=== PATIENT | female | born 1985 | race Caucasian/White ===

== ENCOUNTER 2018-06-12 23:43 | Emergency (ER) | payer OTHER ==
[~2018-06-12] VITALS: Ht 157.5 cm; Wt 74.8 kg
[~2018-06-12 23:43] MED LIST: ADDERALL 10 MG10 MG PO; ADDERALL 30 MG30 MG PO; AMOXICILLIN 50500 M1 PO; APAP500 PO; AUGMENTIN 500-1 EACH PO; AZITHROMYCIN 2250 MG PO; B COMPLEX1 EAC1 PO; CIPRO250 M2 PO; CLEOCIN HCL150 MG PO; CREON DR 3,0001 EACH PO; DIFLUCAN150 M1 PO; DOXYCYCLINE 10100 MG IV; FLEXERIL PO; HYDROCODONE-AP1 EAC6 PO; IBUPROFEN 800800 M1 PO; IBUPROFEN 800800 MG PO; IODINE1 GM PO; MILK OF MA2400 MG/10 PO; NORCO 5-325 TA1 EACH; NORCO 5-325 TA1 EACH PO; PERCOCET 5-3251 EACH PO; PERCOCET 7.5-31 EACH PO; PERCOCET PO; PREDNISONE 10 M10 MG PO; TIZANIDINE HCL4 MG PO; UNICOMPLEX M TA1 TA1 PO; VITAMIN D1000 UNI1 PO; ZOFRAN4 MG PO
[2018-06-13] MEDS ORDERED: OXYCODONE HCL10 MG
[2018-06-13] MEDS ORDERED: NEURONTIN 300300 M1 (00:01)
[2018-06-13] MEDS ORDERED: FLEXERIL PO (01:51)
[2018-06-13 02:14] VITALS: BP 124/88
== END 2018-06-13 02:14 | disposition home or self-care (01) ==
LOC: M.ERS 23:43
DX: S06.0X0A Concussion without loss of consciousness, initial encounter (principal); N80.9 Endometriosis, unspecified; I10 Essential (primary) hypertension; Z88.2 Allergy status to sulfonamides; Z88.8 Allergy status to other drugs, medicaments and biological substances; W18.39XA Other fall on same level, initial encounter; Y93.89 Activity, other specified; Y92.89 Other specified places as the place of occurrence of the external cause; Y99.8 Other external cause status

== ENCOUNTER 2019-07-01 07:37 | Emergency (ER) | payer OTHER, MEDICAID ==
[~2019-07-01] VITALS: Ht 165.1 cm; Wt 90.7 kg
[~2019-07-01 07:37] MED LIST changes: +NEURONTIN 300300 M1; +OXYCODONE HCL10 MG
[2019-07-01 08:23] LABS: URINE BILIRUBIN NEGATIVE (Negative); URINE BLOOD NEGATIVE (Negative); URINE CLARITY CLEAR; URINE COLOR YELLOW; URINE GLUCOSE-RANDOM NEGATIVE (Negative); URINE KETONES NEGATIVE (Negative); URINE LEUKOCYTES-REFLEX NEGATIVE (Negative); URINE NITRITE-REFLEX NEGATIVE (Negative); URINE PROTEIN TRACE (Negative); URINE SPECIFIC GRAVITY >= 1.030 (1.005-1.030); URINE UROBILINOGEN 0.2 E.U./dl (0.2-1.0)
[2019-07-01] MEDS ORDERED: BUTALB-APAP-CA1 EACH PO (10:55)
[2019-07-01] MEDS ORDERED: XANAX 0.25 MG0.25 MG PO (10:55)
[2019-07-01 11:26] VITALS: BP 125/93
== END 2019-07-01 11:27 | disposition home or self-care (01) ==
LOC: M.ERS 07:37
PROVIDERS: Personal Emergency Response Attendant
DX: S06.0X0A Concussion without loss of consciousness, initial encounter (principal); S20.229A Contusion of unspecified back wall of thorax, initial encounter; S00.411A Abrasion of right ear, initial encounter; H92.11 Otorrhea, right ear; N80.9 Endometriosis, unspecified; E28.2 Polycystic ovarian syndrome; I10 Essential (primary) hypertension; Z88.8 Allergy status to other drugs, medicaments and biological substances; Z88.2 Allergy status to sulfonamides; Z90.49 Acquired absence of other specified parts of digestive tract; Y04.2XXA Assault by strike against or bumped into by another person, initial encounter; Y92.89 Other specified places as the place of occurrence of the external cause; Y93.89 Activity, other specified; Y99.8 Other external cause status

== ENCOUNTER 2019-08-08 01:58 | Emergency (ER) | payer OTHER, MEDICAID ==
[~2019-08-08] VITALS: Ht 157.5 cm; Wt 81.7 kg
[~2019-08-08 01:58] MED LIST changes: +BUTALB-APAP-CA1 EACH PO; +XANAX 0.25 MG0.25 MG PO
[2019-08-08 02:20] LABS: URINE BILIRUBIN NEGATIVE (Negative); URINE BLOOD NEGATIVE (Negative); URINE CLARITY CLEAR; URINE COLOR DARK YELLOW; URINE GLUCOSE-RANDOM NEGATIVE (Negative); URINE KETONES NEGATIVE (Negative); URINE LEUKOCYTES-REFLEX TRACE (Negative); URINE NITRITE-REFLEX NEGATIVE (Negative); URINE PROTEIN NEGATIVE (Negative); URINE UROBILINOGEN 0.2 E.U./dl (0.2-1.0)
[2019-08-08 02:28] LABS: AMP/METHAMP POSITIVE (Negative); BARBITURATES POSITIVE (Negative); BENZODIAZEPINES Negative (Negative); COCAINE Negative (Negative); METHADONE Negative (Negative); OPIATES POSITIVE (Negative); PCP Negative (Negative); THC Negative (Negative)
[2019-08-08 02:31] LABS: BACTERIA-REFLEX >30 Many /HPF (None Seen); CASTS None Seen /LPF (None Seen); CRYSTALS None Seen /LPF (None Seen); MUCUS 4-6 Moderate strn/LPF (None Seen); SQUAMOUS 0-3 Few /LPF (0-3); URINE RBC 3-10 Few /HPF (0-2); URINE WBC-REFLEX 0-5 Rare /HPF (0-5)
[2019-08-08 06:31] VITALS: BP 124/75
== END 2019-08-08 06:34 | disposition home or self-care (01) ==
LOC: M.ERS 01:58
PROVIDERS: Emergency Medicine
DX: S60.221A Contusion of right hand, initial encounter (principal); S00.81XA Abrasion of other part of head, initial encounter; E28.2 Polycystic ovarian syndrome; I10 Essential (primary) hypertension; Z88.7 Allergy status to serum and vaccine; Z88.2 Allergy status to sulfonamides; Y04.0XXA Assault by unarmed brawl or fight, initial encounter; Y93.89 Activity, other specified; Y92.89 Other specified places as the place of occurrence of the external cause; Y99.8 Other external cause status

== ENCOUNTER 2020-04-12 09:28 | Emergency (ER) | payer OTHER, MEDICAID ==
[~2020-04-12] VITALS: Ht 157.5 cm; Wt 83.9 kg
[2020-04-12] MEDS ORDERED: CYMBALTA20 MG PO (09:45)
[2020-04-12] MEDS ORDERED: CELEBREX50 MG PO (09:45)
[2020-04-12] MEDS ORDERED: MORPHINE SULFAT15 MG PO (09:46)
[2020-04-12 09:48] LABS: URINE BILIRUBIN NEGATIVE (Negative); URINE BLOOD 1+ (Negative); URINE CLARITY SL CLOUDY; URINE COLOR YELLOW; URINE GLUCOSE-RANDOM NEGATIVE (Negative); URINE KETONES NEGATIVE (Negative); URINE LEUKOCYTES-REFLEX NEGATIVE (Negative); URINE NITRITE-REFLEX NEGATIVE (Negative); URINE PROTEIN NEGATIVE (Negative); URINE SPECIFIC GRAVITY 1.025 (1.005-1.030); URINE UROBILINOGEN 0.2 E.U./dl (0.2-1.0)
[2020-04-12 09:51] LABS: ABSOLUTE BASOPHILS 0.1 thou/uL (0.0-0.2); ABSOLUTE EOSINOPHILS 0.1 thou/uL (0.0-0.7); ABSOLUTE LYMPHOCYTES 2.4 thou/uL (0.8-5.3); ABSOLUTE MONOCYTES 0.7 thou/uL (0.0-1.2); ABSOLUTE NEUTROPHILS 6.1 thou/uL (1.6-8.1); BASOPHILS 0.9 %; EOSINOPHILS 0.7 %; HEMATOCRIT 42.7 % (37.0-47.0); HEMOGLOBIN 14.9 gm/dL (12.0-15.0); LYMPHOCYTES 25.2 %; MCV 91.4 fL (80.0-100.0); MONOCYTES 7.9 %; MPV 7.4 fl. (7.2-11.1); NUCLEATED RBCS 0 /100WBC; PLATELET COUNT* 380 thou/uL (150-400); POLYS 65.3 %; RBC 4.67 mil/uL (4.20-5.00); RDW-CV 14.4 % (10.5-14.5); WBC 9.3 thou/uL (4.0-11.0)
[2020-04-12 09:57] LABS: CREATININE 1.1 mg/dL (0.6-1.3); POTASSIUM 3.6 mmol/L (3.5-5.1)
[2020-04-12 10:02] LABS: ALBUMIN 3.4 g/dL (3.4-5.0); TOTAL BILIRUBIN 0.3 mg/dL (<0.1-1.0)
[2020-04-12 10:16] LABS: BACTERIA-REFLEX 1-9 Few /HPF (None Seen); CASTS None Seen /LPF (None Seen); CRYSTALS None Seen /LPF (None Seen); MUCUS None Seen strn/LPF (None Seen); SQUAMOUS >10 Many /LPF (0-3); URINE RBC 3-10 Few /HPF (0-2); URINE WBC-REFLEX 0-5 Rare /HPF (0-5)
[2020-04-12 10:51] VITALS: BP 136/100
--- NOTE | 2020-04-13 08:57 | EKG ---
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: [facility] : 1985 Requested By: Zhen Vargas Order Number: [id number] MD: David Duarte Measurements Intervals [place] Rate: 144 P: 15 [place]: 138 QRS: 46 QRSD: 75 T: 236 QT: 355 QTc: 550 Interpretive Statements Sinus tachycardia Anterior infarct, old Borderline repolarization abnormality Prolonged QT interval Baseline wander in lead(s) II,III,aVR,aVL,aVF,V1,V4,V6 Compared to ECG 09/12/2017 15:59:43 Myocardial infarct finding now present Prolonged QT interval now present Electronically Signed On 04-13-2020 8:57:15 CDT by David Duarte [email or web address] <ELECTRONICALLY SIGNED> By: David Duarte MD, [facility] 04/13/20 0857 2 2 David Duarte MD, [facility] /EPI
== END 2020-04-12 10:53 | disposition home or self-care (01) ==
LOC: M.ERS 09:28
PROVIDERS: Family Medicine
DX: R10.31 Right lower quadrant pain (principal); R10.32 Left lower quadrant pain; R11.0 Nausea; I10 Essential (primary) hypertension; R31.9 Hematuria, unspecified; Z88.2 Allergy status to sulfonamides; Z88.1 Allergy status to other antibiotic agents; Z88.7 Allergy status to serum and vaccine; Z79.899 Other long term (current) drug therapy

== ENCOUNTER 2020-04-18 11:36 | Emergency (ER) | payer OTHER, MEDICAID ==
[~2020-04-18] VITALS: Ht 157.5 cm; Wt 81.7 kg
[~2020-04-18 11:36] MED LIST changes: +CELEBREX50 MG PO; +CYMBALTA20 MG PO; +MORPHINE SULFAT15 MG PO
[2020-04-18 12:39] LABS: ABSOLUTE BASOPHILS 0.1 thou/uL (0.0-0.2); ABSOLUTE LYMPHOCYTES 2.3 thou/uL (0.8-5.3); ABSOLUTE MONOCYTES 0.6 thou/uL (0.0-1.2); ABSOLUTE NEUTROPHILS 4.9 thou/uL (1.6-8.1); BASOPHILS 0.6 %; EOSINOPHILS 0.6 %; HEMATOCRIT 43.3 % (37.0-47.0); HEMOGLOBIN 15.3 gm/dL (12.0-15.0); LYMPHOCYTES 29.2 %; MCH 31.7 pg (26.0-34.0); MCHC 35.4 g/dL (28.0-37.0); MCV 89.8 fL (80.0-100.0); MONOCYTES 7.3 %; MPV 7.8 fl. (7.2-11.1); NUCLEATED RBCS 0 /100WBC; PLATELET COUNT* 430 thou/uL (150-400); POLYS 62.3 %; RBC 4.82 mil/uL (4.20-5.00); WBC 7.9 thou/uL (4.0-11.0)
[2020-04-18 12:43] LABS: CALCIUM 9.3 mg/dL (8.5-10.1); CREATININE 1.1 mg/dL (0.6-1.3)
[2020-04-18 12:43] LABS: URINE BILIRUBIN NEGATIVE (Negative); URINE BLOOD NEGATIVE (Negative); URINE CLARITY CLEAR; URINE COLOR YELLOW; URINE GLUCOSE-RANDOM NEGATIVE (Negative); URINE KETONES NEGATIVE (Negative); URINE LEUKOCYTES-REFLEX NEGATIVE (Negative); URINE NITRITE-REFLEX NEGATIVE (Negative); URINE PROTEIN NEGATIVE (Negative); URINE UROBILINOGEN 0.2 E.U./dl (0.2-1.0)
[2020-04-18 12:48] LABS: ALBUMIN 3.8 g/dL (3.4-5.0); TOTAL BILIRUBIN 0.4 mg/dL (<0.1-1.0); TOTAL PROTEIN 8.2 g/dL (6.4-8.2)
[2020-04-18 12:48] LABS: AMP/METHAMP POSITIVE (Negative); BARBITURATES Negative (Negative); BENZODIAZEPINES Negative (Negative); COCAINE Negative (Negative); METHADONE Negative (Negative); OPIATES Negative (Negative); PCP Negative (Negative); THC Negative (Negative)
[2020-04-18 12:49] LABS: ACETAMINOPHEN < 2 ug/mL (10-30); ALCOHOL < 10 mg/dL (<10); SALICYLATE 2.8 mg/dL (2.8-20.0)
--- NOTE | 2020-04-18 13:44 | EKG ---
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1985 Requested By: Jose Antonio Noe Order Number: [id number] MD: J Carlos Schneider Measurements Intervals [place] Rate: 147 P: 67 SC: 116 QRS: 9 QRSD: 75 T: 256 QT: 287 QTc: 449 Interpretive Statements Sinus tachycardia Probable anteroseptal infarct, old Nonspecific T abnormalities, lateral leads Compared to ECG 04/12/2020 09:53:30 Prolonged QT interval no longer present Myocardial infarct finding still present Electronically Signed On 04-18-2020 13:43:35 CDT by J Carlos Schneider [email or web address] <ELECTRONICALLY SIGNED> By: J Carlos Schneider MD, FACC 04/18/20 1343 1159 1159 J Carlos Schneider MD, [facility] /EPI
[2020-04-18 16:10] VITALS: BP 132/82
== END 2020-04-18 16:10 | disposition home or self-care (01) ==
LOC: M.ERS 11:36
PROVIDERS: Emergency Medicine Emergency Medical Services
DX: M25.511 Pain in right shoulder (principal); R41.0 Disorientation, unspecified; J02.9 Acute pharyngitis, unspecified; R00.2 Palpitations; I10 Essential (primary) hypertension; Z88.2 Allergy status to sulfonamides; Z88.1 Allergy status to other antibiotic agents; Z88.7 Allergy status to serum and vaccine; Z79.899 Other long term (current) drug therapy; Y04.8XXA Assault by other bodily force, initial encounter; Y93.89 Activity, other specified; Y92.89 Other specified places as the place of occurrence of the external cause; Y99.8 Other external cause status

== ENCOUNTER 2020-05-18 00:57 | Emergency (ER) | payer OTHER, MEDICAID ==
[~2020-05-18] VITALS: Ht 157.5 cm; Wt 86.2 kg
[2020-05-18 01:28] LABS: ABSOLUTE EOSINOPHILS 0.2 thou/uL (0.0-0.7); ABSOLUTE LYMPHOCYTES 2.9 thou/uL (0.8-5.3); ABSOLUTE MONOCYTES 0.6 thou/uL (0.0-1.2); ABSOLUTE NEUTROPHILS 3.1 thou/uL (1.6-8.1); BASOPHILS 0.7 %; EOSINOPHILS 2.2 %; HEMATOCRIT 41.1 % (37.0-47.0); HEMOGLOBIN 14.3 gm/dL (12.0-15.0); LYMPHOCYTES 42.4 %; MCH 31.2 pg (26.0-34.0); MCHC 34.7 g/dL (28.0-37.0); MCV 89.8 fL (80.0-100.0); MPV 7.3 fl. (7.2-11.1); NUCLEATED RBCS 0 /100WBC; PLATELET COUNT* 398 thou/uL (150-400); POLYS 45.7 %; RBC 4.57 mil/uL (4.20-5.00); RDW-CV 13.6 % (10.5-14.5); WBC 6.8 thou/uL (4.0-11.0)
[2020-05-18 01:35] LABS: CREATININE 1.1 mg/dL (0.6-1.3); POTASSIUM 3.3 mmol/L (3.5-5.1)
[2020-05-18 01:37] LABS: URINE BILIRUBIN NEGATIVE (Negative); URINE BLOOD NEGATIVE (Negative); URINE CLARITY CLEAR; URINE COLOR YELLOW; URINE GLUCOSE-RANDOM NEGATIVE (Negative); URINE KETONES NEGATIVE (Negative); URINE LEUKOCYTES-REFLEX NEGATIVE (Negative); URINE NITRITE-REFLEX NEGATIVE (Negative); URINE PROTEIN NEGATIVE (Negative); URINE UROBILINOGEN 0.2 E.U./dl (0.2-1.0)
[2020-05-18 01:43] LABS: AMP/METHAMP Negative (Negative); BARBITURATES Negative (Negative); BENZODIAZEPINES Negative (Negative); COCAINE Negative (Negative); METHADONE Negative (Negative); OPIATES POSITIVE (Negative); PCP Negative (Negative); THC Negative (Negative)
[2020-05-18 01:45] LABS: ALBUMIN 3.5 g/dL (3.4-5.0); CALCIUM 8.4 mg/dL (8.5-10.1); MAGNESIUM 1.7 mg/dL (1.8-2.4); TOTAL BILIRUBIN 0.2 mg/dL (<0.1-1.0); TOTAL PROTEIN 7.3 g/dL (6.4-8.2)
[2020-05-18 01:49] LABS: PROTIME 10.5 Seconds (9.20-11.50)
[2020-05-18 03:16] VITALS: BP 122/68
--- NOTE | 2020-05-18 08:49 | EKG ---
[place] [address] ELECTROCARDIOGRAM REPORT Name: YANELY ACUNA [facility] [id number] Admission: 05/18/20 Attend Phys: Discharge: 05/18/20 Date of : 81 Date of Service: 05/18/20 0102 Report #: [id number] THIS REPORT FOR: //name// 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[place] : 1985 Requested By: Susana Hui Order Number: [id number] MD: J Carlos Schneider Measurements Intervals [place] Rate: 136 P: 40 [place]: 127 QRS: 13 QRSD: 77 T: 15 QT: 314 QTc: 473 Interpretive Statements Sinus tachycardia Probable anteroseptal infarct, old Compared to ECG 04/18/2020 11:59:02 T-wave abnormality no longer present Myocardial infarct finding still present Electronically Signed On 05-18-2020 8:49:43 CDT by J Carlos Schneider [email or web address] <ELECTRONICALLY SIGNED> By: J Carlos Schneider MD, [facility] 05/18/20 0849 1 0102 J Carlos Schneider MD, [facility] /EPI
== END 2020-05-18 03:16 | disposition home or self-care (01) ==
LOC: M.ERS 00:57
PROVIDERS: Emergency Medicine
DX: F41.9 Anxiety disorder, unspecified (principal); R00.0 Tachycardia, unspecified; I10 Essential (primary) hypertension; Z88.2 Allergy status to sulfonamides; Z88.1 Allergy status to other antibiotic agents; Z88.8 Allergy status to other drugs, medicaments and biological substances; Z79.899 Other long term (current) drug therapy

== ENCOUNTER 2020-06-17 20:55 | Emergency (ER) | payer OTHER, MEDICAID ==
[~2020-06-17] VITALS: Ht 157.5 cm; Wt 93.0 kg
[2020-06-17 21:29] LABS: ABSOLUTE EOSINOPHILS 0.1 thou/uL (0.0-0.7); ABSOLUTE LYMPHOCYTES 2.4 thou/uL (0.8-5.3); ABSOLUTE MONOCYTES 0.8 thou/uL (0.0-1.2); ABSOLUTE NEUTROPHILS 4.5 thou/uL (1.6-8.1); BASOPHILS 0.3 %; HEMATOCRIT 43.3 % (37.0-47.0); HEMOGLOBIN 15.5 gm/dL (12.0-15.0); LYMPHOCYTES 30.6 %; MCH 31.2 pg (26.0-34.0); MCHC 35.7 g/dL (28.0-37.0); MCV 87.4 fL (80.0-100.0); MPV 7.6 fl. (7.2-11.1); NUCLEATED RBCS 0 /100WBC; PLATELET COUNT* 428 thou/uL (150-400); POLYS 58.1 %; RBC 4.95 mil/uL (4.20-5.00); RDW-CV 13.2 % (10.5-14.5); WBC 7.8 thou/uL (4.0-11.0)
[2020-06-17 21:33] LABS: CALCIUM 8.5 mg/dL (8.5-10.1); POTASSIUM 3.5 mmol/L (3.5-5.1)
[2020-06-17 21:37] LABS: ALBUMIN 3.6 g/dL (3.4-5.0); APTT 28.2 Seconds (25.0-31.3); PROTIME 10.5 Seconds (9.20-11.50); TOTAL BILIRUBIN 0.2 mg/dL (<0.1-1.0); TOTAL PROTEIN 7.9 g/dL (6.4-8.2)
[2020-06-17 22:36] LABS: URINE BILIRUBIN NEGATIVE (Negative); URINE BLOOD NEGATIVE (Negative); URINE CLARITY CLEAR; URINE COLOR YELLOW; URINE GLUCOSE-RANDOM NEGATIVE (Negative); URINE KETONES NEGATIVE (Negative); URINE LEUKOCYTES-REFLEX NEGATIVE (Negative); URINE NITRITE-REFLEX NEGATIVE (Negative); URINE PROTEIN NEGATIVE (Negative); URINE UROBILINOGEN 0.2 E.U./dl (0.2-1.0)
[2020-06-17] MEDS ORDERED: TOPROL XL25 MG PO (23:25)
[2020-06-17 23:33] VITALS: BP 125/70
[2020-06-18] MEDS ORDERED: XARELTO15 MG PO (10:17)
--- NOTE | 2020-06-18 14:00 | EKG ---
[place] [address] ELECTROCARDIOGRAM REPORT Name: KALPANAYANELY Room: [facility]#: [id number] Admission: 06/17/20 Attend Phys: Discharge: 06/17/20 Date of : 81 Date of Service: 06/17/202101 Report #: [id number] THIS REPORT FOR: //name// 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 : 1985 Requested By: Gladis Hook Order Number: [id number] MD: David Duarte Measurements Intervals [place] Rate: 122 P: 46 [place]: 138 QRS: 7 QRSD: 69 T: QT: 326 QTc: 465 Interpretive Statements Sinus tachycardia Borderline T abnormalities, lateral leads Baseline wander in lead(s) II,III,aVF Compared to ECG 05/18/2020 01:02:03 T-wave abnormality now present Myocardial infarct finding no longer present Electronically Signed On 06-18-2020 14:00:28 CDT by David Duarte [email or web address] <ELECTRONICALLY SIGNED> By: David Duarte MD, FACC 06/18/201399 01 01 David Duarte MD, FAC /EPI
== END 2020-06-17 23:34 | disposition home or self-care (01) ==
LOC: M.ERS 20:55
PROVIDERS: Personal Emergency Response Attendant
DX: R00.2 Palpitations (principal); I10 Essential (primary) hypertension; E28.2 Polycystic ovarian syndrome; N80.9 Endometriosis, unspecified; Z90.49 Acquired absence of other specified parts of digestive tract; Z90.721 Acquired absence of ovaries, unilateral; Z88.1 Allergy status to other antibiotic agents; Z88.2 Allergy status to sulfonamides; Z88.7 Allergy status to serum and vaccine

== ENCOUNTER 2020-06-18 03:30 | Emergency (ER) | payer OTHER, MEDICAID ==
[~2020-06-18] VITALS: Ht 167.6 cm; Wt 90.7 kg
[~2020-06-18 03:30] MED LIST changes: +TOPROL XL25 MG PO
[2020-06-18 04:38] LABS: URINE BILIRUBIN NEGATIVE (Negative); URINE BLOOD NEGATIVE (Negative); URINE CLARITY CLEAR; URINE COLOR YELLOW; URINE GLUCOSE-RANDOM NEGATIVE (Negative); URINE KETONES NEGATIVE (Negative); URINE LEUKOCYTES-REFLEX NEGATIVE (Negative); URINE NITRITE-REFLEX NEGATIVE (Negative); URINE PROTEIN NEGATIVE (Negative); URINE UROBILINOGEN 0.2 E.U./dl (0.2-1.0)
[2020-06-18 04:42] LABS: AMP/METHAMP Negative (Negative); BARBITURATES Negative (Negative); BENZODIAZEPINES Negative (Negative); COCAINE Negative (Negative); METHADONE Negative (Negative); OPIATES POSITIVE (Negative); PCP Negative (Negative); THC Negative (Negative)
[2020-06-18 05:28] LABS: ABSOLUTE LYMPHOCYTES 1.8 thou/uL (0.8-5.3); ABSOLUTE MONOCYTES 0.4 thou/uL (0.0-1.2); ABSOLUTE NEUTROPHILS 4.7 thou/uL (1.6-8.1); BASOPHILS 0.5 %; EOSINOPHILS 0.5 %; HEMATOCRIT 42.6 % (37.0-47.0); HEMOGLOBIN 14.8 gm/dL (12.0-15.0); LYMPHOCYTES 25.2 %; MCH 30.2 pg (26.0-34.0); MCHC 34.7 g/dL (28.0-37.0); MCV 87.2 fL (80.0-100.0); MONOCYTES 6.1 %; MPV 7.7 fl. (7.2-11.1); NUCLEATED RBCS 0 /100WBC; PLATELET COUNT* 437 thou/uL (150-400); POLYS 67.7 %; RBC 4.88 mil/uL (4.20-5.00); RDW-CV 13.3 % (10.5-14.5)
[2020-06-18 05:51] LABS: CALCIUM 9.3 mg/dL (8.5-10.1); CREATININE 1.1 mg/dL (0.6-1.3)
[2020-06-18 05:54] LABS: POTASSIUM 4.7 mmol/L (3.5-5.1)
[2020-06-18 05:57] LABS: ALBUMIN 3.6 g/dL (3.4-5.0); TOTAL BILIRUBIN 0.2 mg/dL (<0.1-1.0); TOTAL PROTEIN 7.8 g/dL (6.4-8.2)
[2020-06-18] MEDS ORDERED: XARELTO15 MG PO (10:17)
[2020-06-18 10:39] VITALS: BP 114/70
--- NOTE | 2020-06-18 14:01 | EKG ---
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1985 Requested By: Gladis Hook Order Number: [id number] MD: David Duarte Measurements Intervals [place] Rate: 98 P: 1 [place]: 141 QRS: 8 QRSD: 83 T: 37 QT: 367 QTc: 469 Interpretive Statements Sinus rhythm Borderline T wave abnormalities Compared to ECG 06/17/2020 21:02:51 Sinus tachycardia no longer present T-wave abnormality still present Electronically Signed On 06-18-2020 14:01:36 CDT by David Duarte [email or web address] <ELECTRONICALLY SIGNED> By: David Duarte MD, FACC 06/18/20 1401 0334 0334 David Duarte MD, [facility] /EPI
== END 2020-06-18 10:41 | disposition home or self-care (01) ==
LOC: M.ERS 03:30
PROVIDERS: Personal Emergency Response Attendant
DX: F41.9 Anxiety disorder, unspecified (principal); Z20.828 Contact with and (suspected) exposure to other viral communicable diseases; I10 Essential (primary) hypertension; N80.9 Endometriosis, unspecified; Z79.899 Other long term (current) drug therapy; Z88.7 Allergy status to serum and vaccine; Z88.2 Allergy status to sulfonamides; Z88.1 Allergy status to other antibiotic agents

== ENCOUNTER 2020-06-27 01:20 | Emergency (ER) | payer OTHER, MEDICAID ==
[~2020-06-27] VITALS: Ht 157.5 cm; Wt 90.7 kg
[~2020-06-27 01:20] MED LIST changes: +XARELTO15 MG PO
[2020-06-27] MEDS ORDERED: CLONAZEPAM 0.50.5 M1 PO (01:33)
[2020-06-27] MEDS ORDERED: MORPHINE SULFAT30 M4 PO (01:34)
[2020-06-27 01:41] LABS: ABSOLUTE LYMPHOCYTES 2.4 thou/uL (0.8-5.3)
[2020-06-27 01:43] LABS: ABSOLUTE EOSINOPHILS 0.1 thou/uL (0.0-0.7); ABSOLUTE MONOCYTES 0.5 thou/uL (0.0-1.2); ABSOLUTE NEUTROPHILS 1.2 thou/uL (1.6-8.1); BASOPHILS 0.5 %; EOSINOPHILS 2.5 %; HEMOGLOBIN 13.6 gm/dL (12.0-15.0); LYMPHOCYTES 56.3 %; MCH 29.8 pg (26.0-34.0); MCHC 33.9 g/dL (28.0-37.0); MONOCYTES 12.4 %; MPV 7.5 fl. (7.2-11.1); NUCLEATED RBCS 0 /100WBC; PLATELET COUNT* 300 thou/uL (150-400); POLYS 28.3 %; RBC 4.54 mil/uL (4.20-5.00); RDW-CV 13.5 % (10.5-14.5); WBC 4.2 thou/uL (4.0-11.0)
[2020-06-27 02:04] LABS: INR 1.1; PROTIME 11.4 Seconds (9.20-11.50)
[2020-06-27 02:10] LABS: POTASSIUM 3.2 mmol/L (3.5-5.1)
[2020-06-27 02:17] LABS: CK-MB MASS 1.1 ng/mL (<0.5-3.6); MAGNESIUM 1.7 mg/dL (1.8-2.4); TOTAL BILIRUBIN 0.2 mg/dL (<0.1-1.0); TOTAL PROTEIN 6.7 g/dL (6.4-8.2)
[2020-06-27 04:55] VITALS: BP 117/80
--- NOTE | 2020-06-27 10:55 | EKG ---
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1985 Requested By: Zhen Vargas Order Number: [id number] MD: J Carlos Schneider Measurements Intervals [place] Rate: 112 P: 47 [place]: 151 QRS: 19 QRSD: 97 T: 8 QT: 343 QTc: 469 Interpretive Statements Sinus tachycardia artifact noted Compared to ECG 06/18/2020 03:34:53 Sinus rhythm no longer present Electronically Signed On 06-27-2020 10:55:23 CDT by J Carlos Schneider [email or web address] <ELECTRONICALLY SIGNED> By: J Carlos Schneider MD, [facility] 06/27/20 1055 0126 0126 J Carlos Schneider MD, [facility] /EPI
== END 2020-06-27 04:55 | disposition home or self-care (01) ==
LOC: M.ERS 01:20
PROVIDERS: Family Medicine
DX: R07.89 Other chest pain (principal); N80.9 Endometriosis, unspecified; I10 Essential (primary) hypertension; Z88.2 Allergy status to sulfonamides; Z88.1 Allergy status to other antibiotic agents; Z88.7 Allergy status to serum and vaccine

== ENCOUNTER 2020-07-06 23:20 | Emergency (ER) | payer OTHER, MEDICAID ==
[~2020-07-06] VITALS: Ht 157.5 cm; Wt 96.7 kg
[~2020-07-06 23:20] MED LIST changes: +CLONAZEPAM 0.50.5 M1 PO; +MORPHINE SULFAT30 M4 PO
[2020-07-06] MEDS ORDERED: CLONAZEPAM 0.50.5 M1 PO (23:35)
[2020-07-07 01:29] VITALS: BP 127/91
== END 2020-07-07 01:30 | disposition home or self-care (01) ==
LOC: M.ERS 23:20
DX: T40.2X1A Poisoning by other opioids, accidental (unintentional), initial encounter (principal); N80.9 Endometriosis, unspecified; Z88.7 Allergy status to serum and vaccine; Z88.2 Allergy status to sulfonamides; Z88.1 Allergy status to other antibiotic agents; Y92.89 Other specified places as the place of occurrence of the external cause

== ENCOUNTER 2020-08-26 10:22 | Emergency (ER) | payer OTHER, MEDICAID ==
[~2020-08-26] VITALS: Ht 157.5 cm; Wt 90.7 kg
[2020-08-26] MEDS ORDERED: OXYCODONE PO (10:32)
[2020-08-26] MEDS ORDERED: AMOXICILLIN 50500 MG PO (11:48)
[2020-08-26 12:12] VITALS: BP 118/88
== END 2020-08-26 12:13 | disposition home or self-care (01) ==
LOC: M.ERS 10:22
DX: H66.91 Otitis media, unspecified, right ear (principal); N80.9 Endometriosis, unspecified; I10 Essential (primary) hypertension; M79.7 Fibromyalgia; Z20.828 Contact with and (suspected) exposure to other viral communicable diseases; Z88.7 Allergy status to serum and vaccine; Z88.2 Allergy status to sulfonamides; Z88.5 Allergy status to narcotic agent; Z88.1 Allergy status to other antibiotic agents

== ENCOUNTER 2020-11-25 08:52 | Emergency (ER) | payer OTHER, MEDICAID ==
[~2020-11-25] VITALS: Ht 157.5 cm; Wt 89.8 kg
[~2020-11-25 08:52] MED LIST changes: +AMOXICILLIN 50500 MG PO; +OXYCODONE PO
[2020-11-25 10:09] VITALS: BP 123/78
== END 2020-11-25 10:09 | disposition home or self-care (01) ==
LOC: M.ERS 08:52
DX: B34.9 Viral infection, unspecified (principal); Z20.822 Contact with and (suspected) exposure to COVID-19; N80.9 Endometriosis, unspecified; I10 Essential (primary) hypertension; M79.7 Fibromyalgia; Z88.2 Allergy status to sulfonamides; Z88.5 Allergy status to narcotic agent; Z88.1 Allergy status to other antibiotic agents; Z88.7 Allergy status to serum and vaccine

== ENCOUNTER 2020-12-02 16:40 | Emergency (ER) | payer OTHER, MEDICAID ==
[~2020-12-02] VITALS: Ht 157.5 cm; Wt 90.7 kg
[2020-12-02] MEDS ORDERED: TOPROL XL25 MG PO (16:50)
[2020-12-02 17:17] LABS: URINE BILIRUBIN NEGATIVE (Negative); URINE BLOOD NEGATIVE (Negative); URINE CLARITY CLEAR; URINE COLOR YELLOW; URINE GLUCOSE-RANDOM NEGATIVE (Negative); URINE KETONES NEGATIVE (Negative); URINE LEUKOCYTES-REFLEX NEGATIVE (Negative); URINE NITRITE-REFLEX NEGATIVE (Negative); URINE PROTEIN NEGATIVE (Negative); URINE UROBILINOGEN 0.2 E.U./dl (0.2-1.0)
[2020-12-02 17:18] LABS: ABSOLUTE BASOPHILS 0.1 thou/uL (0.0-0.2); ABSOLUTE LYMPHOCYTES 1.3 thou/uL (0.8-5.3); ABSOLUTE MONOCYTES 0.6 thou/uL (0.0-1.2); ABSOLUTE NEUTROPHILS 6.7 thou/uL (1.6-8.1); BASOPHILS 0.6 %; EOSINOPHILS 0.3 %; HEMOGLOBIN 14.3 gm/dL (12.0-15.0); LYMPHOCYTES 14.9 %; MCH 30.1 pg (26.0-34.0); MCHC 34.1 g/dL (28.0-37.0); MCV 88.3 fL (80.0-100.0); MONOCYTES 6.5 %; MPV 7.5 fl. (7.2-11.1); NUCLEATED RBCS 0 /100WBC; PLATELET COUNT* 360 thou/uL (150-400); POLYS 77.7 %; RBC 4.76 mil/uL (4.20-5.00); RDW-CV 14.1 % (10.5-14.5); WBC 8.7 thou/uL (4.0-11.0)
[2020-12-02 17:30] LABS: ANION GAP 10 mmol/L (7-16); APTT 27.1 Seconds (25.0-31.3); BUN 10 mg/dL (7-18); CALCIUM 9.2 mg/dL (8.5-10.1); CHLORIDE 104 mmol/L (98-107); CO2 24 mmol/L (21-32); GLUCOSE 155 mg/dL (70-99); POTASSIUM 3.8 mmol/L (3.5-5.1); PROTIME 10.9 Seconds (9.20-11.50); SODIUM 138 mmol/L (136-145)
[2020-12-02 17:42] LABS: ALBUMIN 3.3 g/dL (3.4-5.0); ALKALINE PHOSPHATASE 81 U/L (46-116); CK-MB MASS < 0.5 ng/mL (<0.5-3.6); LIPASE 157 U/L (73-393); NT-PRO BRAIN NAT PEPTIDE 62 pg/mL (<300); SGOT 13 U/L (15-37); SGPT 23 U/L (30-65); TOTAL BILIRUBIN 0.2 mg/dL (<0.1-1.0); TOTAL PROTEIN 7.5 g/dL (6.4-8.2)
[2020-12-02 18:30] VITALS: BP 149/93
--- NOTE | 2020-12-03 10:48 | EKG ---
[place] [address] ELECTROCARDIOGRAM REPORT Name: KALPANAYANELY Room: 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1985 Requested By: Zhen Vargas Order Number: [id number] MD: J Carlos Schneider Measurements Intervals [place] Rate: 140 P: 71 [place]: 107 QRS: 16 QRSD: 91 T: 44 QT: 403 QTc: 615 Interpretive Statements Sinus tachycardia nonspecific t wave changes Prolonged QT interval Baseline wander in lead(s) V1,V2 Compared to ECG 06/27/2020 01:26:16 Prolonged QT interval now present Electronically Signed On 12-03-2020 10:48:03 VOIP ENGINEER by J Carlos Schneider [email or web address] <ELECTRONICALLY SIGNED> By: J Carlos Schneider MD, [facility] 12/03/20 1048 1645 1645 J Carlos Schneider MD, [facility] /EPI
== END 2020-12-02 18:31 | disposition home or self-care (01) ==
LOC: M.ERS 16:40
PROVIDERS: Family Medicine
DX: F41.9 Anxiety disorder, unspecified (principal); R07.89 Other chest pain; Z20.822 Contact with and (suspected) exposure to COVID-19; I10 Essential (primary) hypertension; M79.7 Fibromyalgia; Z88.2 Allergy status to sulfonamides; Z88.1 Allergy status to other antibiotic agents; Z88.5 Allergy status to narcotic agent; Z88.7 Allergy status to serum and vaccine; N80.9 Endometriosis, unspecified

== ENCOUNTER 2021-01-06 23:41 | Emergency (ER) | payer OTHER, MEDICAID ==
[~2021-01-06] VITALS: Ht 157.5 cm; Wt 90.7 kg
[2021-01-07 01:01] LABS: HEMATOCRIT 44.1 % (37.0-47.0); HEMOGLOBIN 14.8 gm/dL (12.0-15.0); MCH 29.9 pg (26.0-34.0); MCHC 33.5 g/dL (28.0-37.0); MCV 89.1 fL (80.0-100.0); MPV 7.9 fl. (7.2-11.1); RBC 4.94 mil/uL (4.20-5.00); RDW-CV 13.8 % (10.5-14.5); WBC 6.2 thou/uL (4.0-11.0)
[2021-01-07 01:07] LABS: CALCIUM 9.4 mg/dL (8.5-10.1); CREATININE 1.1 mg/dL (0.6-1.3)
[2021-01-07 01:08] LABS: POTASSIUM 2.9 mmol/L (3.5-5.1)
[2021-01-07 01:11] LABS: ALBUMIN 3.4 g/dL (3.4-5.0); TOTAL BILIRUBIN 0.3 mg/dL (<0.1-1.0); TOTAL PROTEIN 8.2 g/dL (6.4-8.2)
[2021-01-07] MEDS ORDERED: PROPRANOLOL 1010 M1 PO (02:40)
[2021-01-07] MEDS ORDERED: KLOR-CON 10 ER10 MEQ PO (02:41)
[2021-01-07 03:05] VITALS: BP 118/77
--- NOTE | 2021-01-08 17:31 | EKG ---
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1985 Requested By: Gladis Hook Order Number: [id number] MD: Miah Hernandez Measurements Intervals [place] Rate: 120 P: 51 [place]: 159 QRS: 4 QRSD: 72 T: -49 QT: 355 QTc: 502 Interpretive Statements Sinus tachycardia Borderline T abnormalities, diffuse leads Prolonged QT interval Compared to ECG 12/02/2020 16:45:32 No significant changes Electronically Signed On 01-08-2021 17:31:46 CDT by Miah Hernandez [email or web address] <ELECTRONICALLY SIGNED> By: Miah Hernandez MD, [facility] 01/08/21 1731 2347 2347 Miah Hernandez MD, [facility] /EPI
== END 2021-01-07 03:06 | disposition home or self-care (01) ==
LOC: M.ERS 23:41
PROVIDERS: Personal Emergency Response Attendant
DX: E87.6 Hypokalemia (principal); R00.2 Palpitations; F41.1 Generalized anxiety disorder; I10 Essential (primary) hypertension; M19.90 Unspecified osteoarthritis, unspecified site; M79.7 Fibromyalgia; Z90.49 Acquired absence of other specified parts of digestive tract; Z79.899 Other long term (current) drug therapy; Z88.8 Allergy status to other drugs, medicaments and biological substances; Z88.2 Allergy status to sulfonamides; Z88.5 Allergy status to narcotic agent; Z88.1 Allergy status to other antibiotic agents